=== PATIENT | male | born 1965 | race Two or more races ===

== ENCOUNTER 2018-08-25 10:43 | Emergency (ER) | payer OTHER ==
[2018-08-25 10:50] VITALS: BP 129/76
[2018-08-25] MEDS ORDERED: ERYT1OIN6 EACHEYE (11:22)
== END 2018-08-25 11:35 | disposition home or self-care (01) ==
LOC: ER 10:43
DX: H10.9 Unspecified conjunctivitis (principal); Z79.2 Long term (current) use of antibiotics
CPT/HCPCS: 99283